=== PATIENT | female | born 1995 | race Caucasian/White ===

== ENCOUNTER → 2018-11-21 | Outpatient (CLI) | payer BC | LOC: DIA.ED 09:24 | DX: O24.419 Gestational diabetes mellitus in pregnancy, unspecified control (principal); Z3A.32 32 weeks gestation of pregnancy | CPT/HCPCS: G0108 ==

== ENCOUNTER → 2018-11-28 | Outpatient (CLI) | payer BC | LOC: DIA.ED 08:50 | DX: O24.419 Gestational diabetes mellitus in pregnancy, unspecified control (principal); Z3A.29 29 weeks gestation of pregnancy | CPT/HCPCS: G0108 ==

== ENCOUNTER → 2019-01-01 | Outpatient (CLI) | payer BC | LOC: DIA.ED 08:38 | DX: O24.419 Gestational diabetes mellitus in pregnancy, unspecified control (principal); Z3A.25 25 weeks gestation of pregnancy | CPT/HCPCS: G0108 ==

== ENCOUNTER 2019-01-22 06:49 | Inpatient (IN) | payer BC ==
[~2019-01-22] VITALS: Ht 166.4 cm; Wt 78.6 kg
[2019-01-22] VITALS (58 sets, daily range): BP systolic 104–151; BP diastolic 49–91; PULSE 69–104; TEMP 97.5–100.4
--- NOTE | 2019-01-22 07:20 | NUR ---
Patient ambulatory onto unit with at side for scheduled induction of labor. Patient into bathroom, voids, and changes into gown. Patient into bed, oriented to room, and plan of care discussed. Patient reports good movement and occasional tightening. Denies leaking of fluid, vaginal bleeding, or painful cramping/contractions. . 39.0wks gestation. GBS-. GDM - Diet Controlled. Patient has not checked blood sugar yet this morning and did not bring her glucometer. Blood glucose checked. Patient states she had a [employer] bar at 0630. Will notify for further orders. EFMs on. VS taken. IV attempted to left hand. IV started to left wrist by Caron MCCRAY. Labs drawn. LR infusing per orders. Assessment completed. Consents signed. Pitocin started per orders. Plan of care again discussed. Questions answered. Call light within reach.
[2019-01-22] MEDS ORDERED: PRENATAL VITAMI1 TA3 PO (07:40)
[2019-01-22 08:17] LABS: HEMOGLOBIN 10.9 g/dl (12.5-16.0); MEAN CELL VOLUME 90 fl (80.0-100.0); MEAN CORPUSCULAR HEMOGLOBIN 30 pg (27.0-31.0); MEAN CORPUSCULAR HGB CONC 33 g/dl (33.0-37.0); MEAN PLATELET VOLUME 10.5 fl (7.4-10.4); PLATELET COUNT 250 K/mm3 (130-400); RED BLOOD COUNT 3.63 M/mm3 (4.10-5.30); REDCELL DISTRIBUTION WIDTH-CV 13.4 % (11.5-14.5)
[2019-01-22 08:32] LABS: HEMATOCRIT 32.6 % (37.0-47.0)
[2019-01-22 09:00] LABS: EOSINOPHIL 1 % (0-4); LYMPHOCYTE 20 % (20.0-51.0); NEUTROPHILS 73 % (42.0-75.2); PLATELET ESTIMATE NORMAL (NORMAL)
--- NOTE | 2019-01-22 10:00 | NUR ---
to bedside. AROM at 0957, small amount of clear fluid noted. SVE /-2 per provider. Plan of care discussed. Questions answered. Call light within reach.
--- NOTE | 2019-01-22 11:05 | NUR ---
Patient onto birthing ball. Reports contractions now feel like painful cramping. Denies need for epidural at this time. Will continue to monitor. Call light within reach.
--- NOTE | 2019-01-22 12:30 | NUR ---
1200: Patient requesting epidural placement. IV bolus started. 1208: Hernesto SALAZAR notified of patient request. 1218: Lidocaine. 1220: Epidural Catheter placed. 1221: Test Dose given by Hernesto SALAZAR, no adverse reactions noted. Patient repositioned to left tilt with peanut ball in place.
--- NOTE | 2019-01-22 12:50 | NUR ---
Patient comfortable with epidural. Orozco catheter placed. SVE 4/-1. Patient encouraged to rest. Call light within reach.
--- NOTE | 2019-01-22 14:15 | NUR ---
Patient resting comfortably with epidural. SVE 6/-1. Patient repositioned to left tilt with peanut ball in place, head of bed elevated. Denies pain or needs at this time. Call light within reach.
--- NOTE | 2019-01-22 15:25 | NUR ---
Patient repositioned to sitting/"erich" position. Patient denies pain or needs. Mother and at bedside. Call light within reach.
--- NOTE | 2019-01-22 15:55 | NUR ---
SVE /-1. Pericare performed. Patient returned to "erich" position. Denies pain or needs at this time. Call light within reach.
--- NOTE | 2019-01-22 16:30 | NUR ---
Patient repositioned to left lateral with right leg up in stirrup. Patient reports mild pain in right lower abdomen with contractions. Instructed to notify RN if pain continues and to push epidural button if needed. Patient encouraged to rest. Call light within reach.
--- NOTE | 2019-01-22 17:20 | NUR ---
Patient repositioned to right lateral with left leg in stirrups. Pericare performed, new gown in place. Variable decelerations noted with contractions. SVE 7-8/100/0, bloody show noted on exam glove. Patient repositioned to right tilt with peanut ball in place, head of bed elevated. Will continue to monitor. Denies pain or needs. Call light within reach.
--- NOTE | 2019-01-22 17:40 | NUR ---
to bedside. SONAL AL/0. Patient repositioned to "erich" position. Plan of care discussed. Questions answered.
--- NOTE | 2019-01-22 18:20 | NUR ---
to bedside. SVE remains AL/0. Patient repositioned to left lateral with peanut ball in place. Patient reporting vaginal/rectal pressure with contractions, otherwise comfortable with epidural. Report to Geovanna MCCRAY to assume care of patient at this time. Call light within reach.
--- NOTE | 2019-01-22 20:53 | NUR ---
2052- DR. CABRAL AT BEDSIDE. ASSESING PROGRESS OF PUSHING. PATIENT'S QUESTIONS AND CONCERNS DISCUSSED AT THIS TIME. DR. CABRAL STATES DECISION FOR PRIMARY SECTION TO BE PERFOMED ROUTE OF DELIVERY AT THIS TIME. PATIENT DISCUSSED WITH FAMILY AND AGREED WITH DR. CABRAL ABOUT .
--- NOTE | 2019-01-22 20:53 | NUR ---
2052- DR. CABRAL AT BEDSIDE ASSESSING PROGRESS OF PUSHING AND POSITION. SECTION DISCUSSION AT THIS TIME FOR FAILURE TO DESCEND. PATIENT AGREES TO AT THIS TIME. PATIENT'S QUESTIONS ANSWERED.
[2019-01-23] VITALS (11 sets, daily range): BP systolic 95–128; BP diastolic 53–69; PULSE 67–94; TEMP 97.7–98.7
--- NOTE | 2019-01-23 07:15 | NUR ---
Rests in bed, alert, holding baby lovingly. Request to have pain medication. 0725 Percocet 5/325 mg one given per request and as ordered.
--- NOTE | 2019-01-23 09:30 | NUR ---
Rests in bed, alert. communication consultant here, visits with patient.
--- NOTE | 2019-01-23 10:33 | NUR ---
Initial visit; Patient thanked Client Services Associate for offering congratulations and God's blessings for the of her son. Client Services Associate thanked family for choosing [facility].
--- NOTE | 2019-01-23 12:15 | NUR ---
Ambulates to the bathroom, la care shown and done. Ice pack and tucks on. Very swollen in the vaginal area. Washes face and brushes teeth.
[2019-01-24 08:00] VITALS: BP 116/65; PULSE 90; TEMP 97.8
[2019-01-24] MEDS ORDERED: IBU800 M1 PO (09:01)
[2019-01-24] MEDS ORDERED: PERCOCET 325 MG1 TA2 PO (09:01)
[2019-01-24 15:45] VITALS: BP 122/69; PULSE 82; TEMP 98
[2019-01-24 20:15] VITALS: BP 113/81; PULSE 81; TEMP 97.7
[2019-01-25 07:25] VITALS: BP 125/66; PULSE 75; TEMP 97.8
== END 2019-01-25 12:10 | disposition home or self-care (01) | DRG 788 ==
LOC: LDR 06:49 → OB 07:14 → LDR 09:03 → OB 22:33
PROVIDERS: ADMIT Student in an Organized Health Care Education/Training Program
PROC: 10D00Z1 Extraction of Products of Conception, Low, Open Approach (ICD-10-PCS; principal; 2019-01-22)
PROC: 3E033VJ Introduction of Other Hormone into Peripheral Vein, Percutaneous Approach (ICD-10-PCS; 2019-01-22)
DX: O32.4XX0 Maternal care for high head at term, not applicable or unspecified (principal); O24.429 Gestational diabetes mellitus in childbirth, unspecified control; O36.63X0 Maternal care for excessive fetal growth, third trimester, not applicable or unspecified; Z3A.39 39 weeks gestation of pregnancy; Z37.0 Single live birth; O26.893 Other specified pregnancy related conditions, third trimester; Z67.41 Type O blood, Rh negative
CPT/HCPCS: J0690; J1885; J1940; J2370; J2400; J2405; J2590; J2791; J7120

== ENCOUNTER → 2019-01-29 | Outpatient (CLI) | payer BC ==
[~2019-01-29] MED LIST: IBU800 M1 PO; PERCOCET 325 MG1 TA2 PO; PRENATAL VITAMI1 TA3 PO
--- NOTE | 2019-01-29 12:18 | NUR ---
Pt, Jarrett Valiente, into the walk in clinic with 7 day old Eddie for weight check and breast feeding evaluation. Eddie was born on [birth year] via c/s and weighed 8#7 oz. Jarrett presents today with concerns r/t an over supply of milk and Eddie coughing/ gagging while feeding. Jarrett reports Eddie is nursing 7-8 times per day and diapers to be WNL. Today, Eddie's prefeed weight was noted as 8 # 0.5 oz (3644 gms). Eddie nursed from the left breast using a breast shield for approx 5 min and had a gain of 2.9 oz (82 mls). LC discussed management of over supply with Jarrett and s/sx of plugged ducts and mastitis. POC: BF ad alee, offering only one breast each feeding. Avoid pumping or expressing extra milk until milk supply normalizes. Return next week for weight check and to work on weaning from breastshield.
== END ==
LOC: OLC 11:13
DX: Z39.1 Encounter for care and examination of lactating mother (principal); Z71.89 Other specified counseling

== ENCOUNTER 2020-06-14 07:16 | Inpatient (IN) | payer BC ==
[2020-06-14] VITALS (14 sets, daily range): BP systolic 101–137; BP diastolic 54–84; PULSE 64–129; TEMP 98.1–98.4
[~2020-06-14] VITALS: Ht 165.1 cm; Wt 72.7 kg
[2020-06-14 07:35] LABS: HEMOGLOBIN 11.5 g/dl (12.5-16.0); MEAN CELL VOLUME 86 fl (80.0-100.0); MEAN CORPUSCULAR HEMOGLOBIN 28 pg (27.0-31.0); MEAN CORPUSCULAR HGB CONC 32 g/dl (33.0-37.0); MEAN PLATELET VOLUME 9.6 fl (7.4-10.4); PLATELET COUNT 299 K/mm3 (130-400); RED BLOOD COUNT 4.11 M/mm3 (4.10-5.30); REDCELL DISTRIBUTION WIDTH-CV 12.8 % (11.5-14.5)
[2020-06-14 07:40] LABS: HEMATOCRIT 35.5 % (37.0-47.0)
--- NOTE | 2020-06-14 09:44 | NUR ---
0700 PATIENT HERE FROM HOME WITH COMPLAINTS OF CONTRACTIONS EVERY 2 MIN AND GETTING STRONGER. PATIENT VERY TENSE BUT CONTROLLED WITH CONTRACTIONS. SVE 9/100/0 BULGY BAG NOTED. EFM ON FHT [address] PEREZ CALLED AT THIS TIME TO COME NOW FOR DELIVERY. 0705 IV STARTED IN LEFT WRIST WITH LR BOLUS STARTED. ASSESSMENT STARTED. PATIENT IS 35 WEEKS AND 6 DAYS AND A REPEAT C SECTION. 0710 PATIENT HAS URGE TO PUSH. SVE 10/100/[address] PEREZ STILL ON WAY TO HOSPITAL.
--- NOTE | 2020-06-14 09:48 | NUR ---
8424 DR PEREZ AY BEDSIDE. SVE AMD AROM WITH AMNIOHOOK LARGE AMOUNT OF CLEAR FLUID NOTED. PATIENT WILL PUSH WITH NEXT CONTRACTION.
--- NOTE | 2020-06-14 09:50 | NUR ---
0750 BABY BOY BORN VIA BY DR PEREZ. CORD CLAMPED AND CUT BY DR PEREZ AND TO MOMS CHEST. STRONG CRY NOTED. 0755 PLACENTA DELIVERED AND PITOCIN STARTED AT 333/ HR PER PROTOOCL. FUNDUS BOGGY, MASSAGED UNTIL FIRM WITH SMALL CLOTS NOTED. 0800 METHERGINE IM GIVEN IN KE[place] THIGH. FUNUS FIRM AT THIS TIME. PATIETN COMPLAINS OF PRESSURE IN BUTTOCKS. HEMATOMA NOTED TO LEFT LABIA. DR PEREZ AT BEDSIDE. MOTRIN 600 MG PO AND PERCOCET 1 TAB GIVEN AT THIS TIME. ICE PACK APPLIED TO ROSEANNA AREA ALSO. 0805 LIDOCAINE USED FOR SMALL REPAIR
[2020-06-14 11:46] LABS: EOSINOPHIL 2 % (0-4); LYMPHOCYTE 15 % (20.0-51.0); NEUTROPHILS 78 % (42.0-75.2); PLATELET ESTIMATE NORMAL (NORMAL)
[2020-06-14 11:47] LABS: HYPOCHROMIA 1+
[2020-06-15 02:50] VITALS: BP 115/70; PULSE 86
--- NOTE | 2020-06-15 06:31 | NUR ---
PATIENT SLEEPING. REPORT GIVEN BY OFF GOING RNCALIXTO. CARE TAKEN OVER BY THIS RN.
[2020-06-15 06:41] LABS: HEMOGLOBIN 10.5 g/dl (12.5-16.0)
[2020-06-15 06:52] LABS: HEMATOCRIT 32.8 % (37.0-47.0)
[2020-06-15 06:54] VITALS: BP 106/56; PULSE 79; TEMP 97.7
[2020-06-15] MEDS ORDERED: IBU600 MG PO (09:36)
[2020-06-15] MEDS ORDERED: PERCOCET 325 MG1 TA2 PO (09:36)
--- NOTE | 2020-06-15 09:37 | NUR ---
Initial visit; Patient thanked Import Export Coordinator for offering congratulations and God' blessings for the of her son. Import Export Coordinator thanked Jarrett for choosing [facility].
--- NOTE | 2020-06-15 12:14 | NUR ---
AT 'S BEDSIDE IN NURSERY. UPDATED ON INFANTS CURRENT CONDITION, NEED TO TRANSFER, POC. REY FROM DR. CABRAL FOR DISCHARGE. FOLLOW UP IN TWO WEEKS, CONTINUE USE OF ICE PACKS TO PERINEUM FOR HEMATOMIA. ICE PACKS, MESH UNDERWEAR, TUCKS PREPARED TO SEND WITH PATIENT UPON DISCHARGE.
--- NOTE | 2020-06-15 13:40 | NUR ---
DISCHARGE INSTRUCTIONS REVIEWED. QUESTIONS INVITED AND ANSWERED.
== END 2020-06-15 15:10 | disposition home or self-care (01) | DRG 807 ==
LOC: OB → LDR 07:16 → OB 10:22
PROVIDERS: Obstetrics & Gynecology; ADMIT Student in an Organized Health Care Education/Training Program
PROC: 10D07Z6 Extraction of Products of Conception, Vacuum, Via Natural or Artificial Opening (ICD-10-PCS; principal; 2020-06-14)
PROC: 0KQM0ZZ Repair Perineum Muscle, Open Approach (ICD-10-PCS; 2020-06-14)
PROC: 10907ZC Drainage of Amniotic Fluid, Therapeutic from Products of Conception, Via Natural or Artificial Opening (ICD-10-PCS; 2020-06-14)
PROC: 0UQMXZZ Repair Vulva, External Approach (ICD-10-PCS; 2020-06-14)
DX: O60.14X0 Preterm labor third trimester with preterm delivery third trimester, not applicable or unspecified (principal); Z37.0 Single live birth; O70.1 Second degree perineal laceration during delivery; O34.211 Maternal care for low transverse scar from previous cesarean delivery; Z3A.35 35 weeks gestation of pregnancy
CPT/HCPCS: J2590; J2791; J7120

== ENCOUNTER 2021-10-14 18:52 | Emergency (ER) | payer BC ==
[~2021-10-14] VITALS: Ht 162.6 cm; Wt 65.9 kg
[~2021-10-14 18:52] MED LIST changes: +IBU600 MG PO
[2021-10-14 19:02] VITALS: TEMP 97.9
[2021-10-14 20:05] LABS: COLLECTION METHOD CLEAN CATCH
[2021-10-14 20:08] LABS: BASO % 0.4 % (0.0-2.0); EOS % 0.4 % (0.0-4.0); HEMATOCRIT 35.6 % (37.0-47.0); HEMOGLOBIN 11.9 g/dl (12.5-16.0); LYMPH # 2.4 K/mm3 (1.2-3.4); LYMPH % 21.6 % (20.0-51.0); MEAN CELL VOLUME 91 fl (80.0-100.0); MEAN CORPUSCULAR HEMOGLOBIN 31 pg (27-31); MEAN CORPUSCULAR HGB CONC 33 g/dl (33.0-37.0); MEAN PLATELET VOLUME 9.2 fl (7.4-10.4); MONO # 0.6 K/mm3 (0.1-0.6); MONO % 5.4 % (1.7-9.3); PLATELET COUNT 301 K/mm3 (130-400)
[2021-10-14 20:11] LABS: PH 7 (5-8); SQUAMOUS EPITHELIAL 0-2 /hpf (0-10); URINE APPEARANCE Clear (CLEAR/HAZY); URINE BACTERIA None Seen /hpf (NONE SEEN); URINE BILIRUBIN Negative (NEGATIVE); URINE BLOOD Negative (NEGATIVE); URINE COLOR Straw (YELLOW); URINE GLUCOSE Negative (NEGATIVE); URINE KETONE Negative (NEGATIVE); URINE LEUKOCYTE ESTERASE Negative (NEGATIVE); URINE NITRATE Negative (NEGATIVE); URINE PROTEIN(semi-quant) Negative (NEGATIVE); URINE RBC None Seen /hpf (0-2); URINE UROBILINOGEN Negative (NEGATIVE)
[2021-10-14 20:25] LABS: ALBUMIN 3.2 gm/dL (3.5-5.0); BILIRUBIN,TOTAL 0.4 mg/dL (0.2-1.2); CALCIUM 8.7 mg/dL (8.4-10.2); CREATININE, serum 0.58 mg/dL (0.57-1.11); POTASSIUM 3.4 mmol/L (3.5-4.5); TOTAL PROTEIN 6.8 gm/dL (6.2-8.1)
--- NOTE | 2021-10-14 21:05 | NUR ---
FHR baseline 135, moderate variability, positive for 10x10 accels, and occasional variable decels. Report to BUSINESS LIAISON OFFICER.
[2021-10-14 22:10] VITALS: BP 107/71; PULSE 80
== END 2021-10-14 22:10 | disposition home or self-care (01) ==
LOC: COL.ER 18:52
PROVIDERS: Personal Emergency Response Attendant
DX: O26.892 Other specified pregnancy related conditions, second trimester (principal); R51.9 Headache, unspecified; R20.2 Paresthesia of skin; Z3A.25 25 weeks gestation of pregnancy; Z28.310 Unvaccinated for COVID-19

== ENCOUNTER 2022-01-08 17:56 | Inpatient (IN) | payer BC ==
[2022-01-08] VITALS (17 sets, daily range): BP systolic 104–125; BP diastolic 53–94; PULSE 62–98; TEMP 97.8–97.9
[~2022-01-08] VITALS: Ht 167.6 cm; Wt 71.8 kg
--- NOTE | 2022-01-08 18:00 | NUR ---
1800-G3L2 [address] Lawrence's ambulatory to LDR 4 with complaint of contractions that started at 1600 10 min apart and have now changed to 5 min apart. Denies LOF or vaginal bleeding. Reports good movement. Patient breathing through contractions. Assisted into gown placed on EFM. VSS, SVE /-2 intact. Patient desires repeat c/s. Has a recent history of precipitous . Patient anxious for repeat c/s. Dr. Beatty updated and orders recieved to admit ptaient and proceed with getting patient back to OR. 1810-IV to right wrist, blood collected and sent to lab, LR infusing per MD order and protocol. 1820-Consents reviewed and signed. Mons pubis trimmed with clippers and abdoment cleansed per protocol. MARIE Palmer to patient room. VO to give pepcid, see EMAR. 1830-Patient off EFM and ambulatory to OR. Report given to SHAZIA Young who assumes care of patient at this time.
[2022-01-08 18:26] LABS: BASO % 0.2 % (0.0-2.0); EOS % 0.4 % (0.0-4.0); GRAN # 6.7 K/mm3 (1.4-6.5); GRAN % 70.2 % (42.2-75.2); HEMATOCRIT 38.8 % (37.0-47.0); LYMPH % 20.5 % (20.0-51.0); MEAN CELL VOLUME 90 fl (80.0-100.0); MEAN CORPUSCULAR HEMOGLOBIN 30 pg (27-31); MEAN CORPUSCULAR HGB CONC 34 g/dl (33.0-37.0); MEAN PLATELET VOLUME 9.9 fl (7.4-10.4); MONO # 0.7 K/mm3 (0.1-0.6); MONO % 7.3 % (1.7-9.3); PLATELET COUNT 255 K/mm3 (130-400); REDCELL DISTRIBUTION WIDTH-CV 13.2 % (11.5-14.5)
[2022-01-09 03:10] VITALS: BP 116/67; PULSE 94
[2022-01-09 06:27] LABS: HEMATOCRIT 32.2 % (37.0-47.0)
[2022-01-09 08:14] VITALS: BP 107/66; PULSE 97; TEMP 97.8
[2022-01-09 12:10] VITALS: BP 110/62; PULSE 90
[2022-01-09 16:27] VITALS: BP 106/62; PULSE 91; TEMP 97.4
[2022-01-09 20:30] VITALS: BP 114/67; PULSE 100; TEMP 98.2
[2022-01-10 07:22] VITALS: BP 107/61; PULSE 86; TEMP 98.6
[2022-01-10] MEDS ORDERED: IBU600 MG PO (08:45)
[2022-01-10] MEDS ORDERED: PERCOCET 325 MG1 TA2 PO (08:46)
== END 2022-01-10 15:21 | disposition home or self-care (01) | DRG 788 ==
LOC: LDRO 17:56 → LDR 18:25 → OB 18:25
PROVIDERS: Obstetrics & Gynecology; ADMIT Student in an Organized Health Care Education/Training Program
PROC: 10D00Z1 Extraction of Products of Conception, Low, Open Approach (ICD-10-PCS; principal; 2022-01-08)
DX: O34.211 Maternal care for low transverse scar from previous cesarean delivery (principal); O35.8XX0 Maternal care for other (suspected) fetal abnormality and damage, not applicable or unspecified; Z3A.38 38 weeks gestation of pregnancy; Z37.0 Single live birth
CPT/HCPCS: J0690; J1885; J2791; J3010; J7120